=== PATIENT | female | born 1970 | race Caucasian/White ===

== ENCOUNTER 2021-08-18 15:10 | Emergency (ER) | payer BC, MEDICAID ==
[2021-08-18 16:31] VITALS: BP 131/68; PULSE 87
--- NOTE | 2021-08-18 16:48 | EDM.PDOC ---
ED HPI GENERAL MEDICAL PROBLEM - General Chief Complaint: ENT Problem Stated Complaint: COUGH, SORE THROAT Time Seen by Provider: 08/18/21 16:15 Source of Information: Reports: Patient, Old Records, RN History Limitations: Reports: No Limitations - History of Present Illness INITIAL COMMENTS - FREE TEXT/NARRATIVE: 50 yo female was seen in the [facility] recently for illness. Has a 4 plex viral screen that she knows was neg for Covid, but she is not sure of the other results. Has been getting worse since she was seen with fever, cough, sore throat, nasal congestion and clear rhinorrhea. Sore throat is her most bothersome sx. She took ibuprofen before arrival. Review of [facility] records shows she did not have a 4 plex, she had Covid and strep. Onset: Gradual Duration: Day(s):, Getting Worse Location: Reports: Face (R ear sims), Neck (throat), Chest Quality: Reports: Burning Severity: Moderate Improves with: Reports: Medication (ibuprofen) Worsens with: Reports: Other (time) Context: Reports: Other (See HPI) Associated Symptoms: Reports: Cough, Fever/Chills. Denies: Nausea/Vomiting, Shortness of Breath Treatments DIRECTOR OF CATERING: Reports: NSAIDS Throat Pain Score (Numeric/FACES): 7 - Related Data Allergies Allergy/AdvReac Type Severity Reaction Status Date / Time latex Allergy Itching Verified 08/18/21 16:48 Home Meds: Home Meds NK [No Known Home Meds] 08/18/21 [History] Past Medical History HEENT History: Reports: Impaired Vision, Sinusitis Cardiovascular History: Reports: High Cholesterol Respiratory History: Reports: Bronchitis, Recurrent Gastrointestinal History: Reports: Cholelithiasis, Gastritis, GERD, Hemorrhoids, Helicobacter Pylori GRAIN OPERATOR History: Reports: , Spontaneous , Other (See Below) Other GRAIN OPERATOR History: miscarriage June 2015 Musculoskeletal History: Reports: Back Pain, Chronic, Fracture Other Musculoskeletal History: broken wrist Psychiatric History: Reports: Anxiety, Panic Attack Endocrine/Metabolic History: Reports: Other (See Below) Other Endocrine/Metabolic History: hashemotos Immunologic History: Reports: Other (See Below) Other Immunologic History: lymes disease Dermatologic History: Reports: Eczema, Psoriasis, Urticaria - Infectious Disease History Infectious Disease History: Reports: Chicken Pox, Helicobacter Pylori, Influenza - Past Surgical History Female Surgical History: Reports: Breast Implant, Section, Other (See Below) Musculoskeletal Surgical History: Reports: Other (See Below) Dermatological Surgical History: Reports: Plastic Surgical Reconstruction/Repair ED ROS ENT - Review of Systems Review Of Systems: See Below Constitutional: Reports: Fever, Chills, Malaise HEENT: Reports: Ear Pain (right), Rhinitis, Throat Pain Respiratory: Reports: Cough. Denies: Shortness of Breath, Sputum Cardiovascular: Reports: No Symptoms GI/Abdominal: Reports: No Symptoms : Reports: No Symptoms Musculoskeletal: Reports: No Symptoms Skin: Reports: No Symptoms Neurological: Reports: No Symptoms ED EXAM, ENT - Physical Exam Exam: See Below Exam Limited By: No Limitations General Appearance: Alert, WD/WN, No Apparent Distress Eye Exam: Bilateral Eye: Normal Inspection Ears: Normal External Exam, Normal Canal, Hearing Grossly Normal, Normal TMs Nose: Normal Inspection, No Blood, Clear Rhinorrhea Mouth/Throat: Normal Inspection, Normal Lips, Normal Oropharynx Head: Atraumatic, Normocephalic Neck: Normal Inspection, Non-Tender Respiratory/Chest: No Respiratory Distress, Lungs Clear, Normal Breath Sounds, No Accessory Muscle Use Cardiovascular: Regular Rate, Rhythm, No Edema GI/Abdominal: Soft, Non-Tender Back: Normal Inspection. No: CVA Tenderness (R), CVA Tenderness (L) Extremities: Normal Inspection, Normal Range of Motion, Non-Tender, No Pedal Edema Neurological: Alert, Oriented, CN II-XII Intact, Normal Cognition, No Motor/Sensory Deficits Psychiatric: Normal Affect, Normal Mood Skin: Warm, Dry, Intact, Normal Color, No Rash Course - Vital Signs Last Recorded V/S: Last Vital Signs Temp 36.8 C 08/18/21 17:38 Pulse 87 08/18/21 17:38 Resp 16 08/18/21 17:38 BP 131/68 08/18/21 17:38 Pulse Ox 94 L 08/18/21 17:38 - Orders/Labs/Meds Orders: Active Orders 24 hr Category Date Time Status Isolation [COMM] Routine Oth 08/18/21 16:45 Ordered Isolation [COMM] Routine Oth 08/18/21 16:46 Ordered Labs: Laboratory Tests 08/18/21 Range/Units 16:55 WBC 8.7 (4.5-11.0) K/uL RBC 4.33 (3.30-5.50) M/uL Hgb 13.3 (12.0-15.0) g/dL Hct 39.5 (36.0-48.0) % MCV 91 (80-98) fL MCH 31 (27-31) pg MCHC 34 (32-36) % Plt Count 326 (150-400) K/uL Neut % (Auto) 68.2 H (36-66) % Lymph % (Auto) 18.0 L (24-44) % Patrick % (Auto) 11.7 H (2-6) % Eos % (Auto) 1.6 L (2-4) % Baso % (Auto) 0.5 (0-1) % Departure - Departure Time of Disposition: 17:49 Disposition: Home, Self-Care 01 Condition: Fair Clinical Impression: Viral respiratory illness - Discharge Information *PRESCRIPTION DRUG MONITORING PROGRAM REVIEWED*: No *COPY OF PRESCRIPTION DRUG MONITORING REPORT IN PATIENT DAYAN: No Instructions: Viral Illness, Adult Referrals: Missy Ferrer MD [Primary Care Provider] - Forms: ED Department Discharge Additional Instructions: Take acetaminophen for pain/fever control. Drink ample fluids. Use Robitussin for cough and sore throat symptoms. Stay in touch with your provider on your condition. Sepsis Event Note (ED) - Focused Exam Vital Signs: Vital Signs Temp Pulse Resp BP Pulse Ox 08/18/21 17:38 36.8 C 87 16 131/68 94 L 08/18/21 16:30 36.8 C 87 16 131/68 94 L - My Orders Last 24 Hours: My Active Orders 08/18/21 16:45 Isolation [COMM] Routine 08/18/21 16:46 Isolation [COMM] Routine - Assessment/Plan Last 24 Hours: My Active Orders 08/18/21 16:45 Isolation [COMM] Routine 08/18/21 16:46 Isolation [COMM] Routine
== END 2021-08-18 18:04 | disposition home or self-care (01) ==
LOC: JP.ED 15:10
DX: J98.8 Other specified respiratory disorders (principal); Z91.040 Latex allergy status
CPT/HCPCS: 36415; 85025; 87804; 87804-59; 87807-QW; 99283

== ENCOUNTER 2022-05-18 15:42 | Emergency (ER) | payer MEDICAID ==
[2022-05-18 16:59] VITALS: BP 132/86; PULSE 100
[2022-05-18] MEDS ORDERED: LORazepam 0.5 MG Tab PO ONE (17:17)
[2022-05-18 18:00] LABS: ESTIMATED GFR 55 mL/min (>60)
== END 2022-05-18 18:51 | disposition home or self-care (01) ==
LOC: JP.ED 15:42
DX: J32.9 Chronic sinusitis, unspecified (principal); Z91.040 Latex allergy status; Z88.0 Allergy status to penicillin
CPT/HCPCS: 36415; 70450; 80053; 83605; 84443; 84484; 85025; 86140; 99284; A9270

== ENCOUNTER 2025-07-16 19:27 | Emergency (ER) | payer MEDICAID ==
[2025-07-16 19:42] LABS: BASOPHILS ABSOLUTE AUTO 0.07 K/uL (0.00-0.10); BASOPHILS PERCENT AUTO 1.3 % (0.1-1.3); EOSINOPHILS ABSOLUTE AUTO 0.45 K/uL (0.00-0.40); EOSINOPHILS PERCENT AUTO 8.3 % (0.0-5.4); IMMATURE GRAN PERCENT AUTO 0.0 % (0.0-0.7); LYMPHOCYTES ABSOLUTE AUTO 2.34 K/uL (0.8-3.3); LYMPHOCYTES PERCENT AUTO 43.3 % (11.4-47.7); MONOCYTES ABSOLUTE AUTO 0.50 K/uL (0.20-0.90); MONOCYTES PERCENT AUTO 9.3 % (3.3-12.6); NEUTROPHILS ABSOLUTE AUTO 2.04 K/uL (1.0-7.6); NEUTROPHILS PERCENT AUTO 37.8 % (40.0-78.1); PLATELET COUNT,PLT 310 K/uL (130-375); RED BLOOD CELL COUNT 4.34 M/uL (3.77-5.24); WHITE BLOOD CELL COUNT,WBC 5.4 K/uL (3.2-11.0)
[2025-07-16 19:51] LABS: IMMATURE GRAN ABSOLUTE AUTO 0.00 K/uL (0.00-0.23)
[2025-07-16 20:04] LABS: A/G RATIO 1.0 (1.2-2.2); ALANINE AMINOTRANSFERASE,ALT 28.0 U/L (12-78); ASPARTATE AMNIOTRANSFERASE,AST 22.0 U/L (15-37); BILIRUBIN DIRECT 0.1 mg/dL (0.0-0.2); BILIRUBIN INDIRECT 0.4; BILIRUBIN TOTAL 0.5 mg/dL (0.2-1.0); BLOOD UREA NITROGEN,BUN 13.0 mg/dL (7-18); CARBON DIOXIDE,CO2 28.0 mmol/L (21-32); CHLORIDE,CL 104.0 mmol/L (100-108); CREATININE 1.0 mg/dL (0.6-1.0); EST CRCL DRUG DOSING (CG) 48.53 mL/min; ESTIMATED GFR 67.0 mL/min (>60); GLUCOSE RANDOM 119.0 mg/dL (74-106); POTASSIUM,K 3.2 mmol/L (3.6-5.2); PROTEIN TOTAL,TP 7.0 g/dL (6.4-8.2); SODIUM,NA 140.0 mmol/L (140-148)
[2025-07-16 20:07] LABS: LACTIC ACID 1.5 mmol/L (0.4-2.0)
[2025-07-16 21:48] VITALS: BP 107/62; PULSE 63
== END 2025-07-16 22:25 | disposition home or self-care (01) ==
LOC: JP.ED 19:27
DX: T65.0X1A Toxic effect of cyanides, accidental (unintentional), initial encounter (principal); F17.200 Nicotine dependence, unspecified, uncomplicated; Z88.0 Allergy status to penicillin; Z91.040 Latex allergy status; Z79.899 Other long term (current) drug therapy; Z90.49 Acquired absence of other specified parts of digestive tract
CPT/HCPCS: 36415; 80048; 80076; 83605; 85025; 99284; A9270